=== PATIENT | male | born 1990 | race Two or more races ===

== ENCOUNTER 2024-01-25 19:24 | Emergency (ER) | payer MEDICAID, OTHER ==
[~2024-01-25] VITALS: Ht 188 cm; Wt 145.2 kg
[2024-01-25 19:42] VITALS: BP 145/72; PULSE 107
[2024-01-25 19:55] VITALS: RESP 18; O2SAT 93
[2024-01-25] MEDS: ALBUTEROL SULF 2.5 MG/0.5ML(0.5%) NEB SOLN NEB ONE (19:57)
[2024-01-25] MEDS: IPRATROPIUM BROM 0.5 MG/2.5ML INH SOL NEB ONE (19:58)
[2024-01-25 20:23] LABS: Basophils # (auto) 0.1 10 ^3/uL (0-0.2); Basophils % (auto) 0.9 % (0.0-2.0); Eosinophils # (auto) 0.5 10 ^3/uL (0-0.8); Eosinophils % (auto) 5.2 % (0.0-7.0); Hematocrit 43.1 % (41.0-53.0); Hemoglobin 14.8 g/dL (13.5-17.5); Lymphocytes # (auto) 2.4 10 ^3/uL (0.4-5.4); Lymphocytes % (auto) 27.1 % (10.0-50.0); Mean Corpuscular Hemoglobin 30.4 pg (28.0-32.0); Mean Corpuscular Hgb Conc. 34.4 g/dL (32.0-36.0); Mean Corpuscular Volume 88.3 fL (80.0-100.0); Monocytes # (auto) 0.8 10 ^3/uL (0-1.3); Monocytes % (auto) 8.6 % (0.0-12.0); Neutrophils # (auto) 5.1 10 ^3/uL (1.6-8.6); Neutrophils % (auto) 58.2 % (37.0-80.0); Nucleated Red Blood Cells % 0.2 %; Platelet Count (auto) 220 10^3/uL (140-450); Red Blood Cells 4.88 10^6/uL (4.5-5.90); Red Cell Distribution Width 13.8 % (11.8-14.3); White Blood Cell 8.7 10^3/uL (4.4-10.8)
[2024-01-25 20:43] LABS: Alanine Aminotransferase 55 U/L (7-40); Albumin 4.4 g/dL (3.2-4.8); Alkaline Phosphatase 110 U/L (46-116); Anion Gap 6 (5-15); Aspartate Aminotransferase 39 U/L (13-40); Bilirubin, Total 0.5 mg/dL (0.2-1.0); Blood Urea Nitrogen 15 mg/dL (9-23); Calcium 9.4 mg/dL (8.7-10.4); Carbon Dioxide 24 mmol/L (20-30); Chloride 111 mmol/L (98-107); Glucose 108 mg/dL (74-106); Potassium 3.8 mmol/L (3.5-5.1); Sodium 141 mmol/L (136-145); Total Protein 7.4 g/dL (5.7-8.2)
[2024-01-25 20:47] LABS: Urine Bacteria None Seen /hpf (None Seen)
[2024-01-25] MEDS: cefTRIAXone 1GM/50ML D5W 50 ML IV ONE (20:54)
[2024-01-25] MEDS: AZITHROMYCIN 500MG/ 250ML 250 ML IV ONE (20:54)
[2024-01-25 21:34] LABS: Urine Blood Negative /uL (Negative); Urine Clarity Clear (Clear); Urine Color Yellow (Yellow); Urine Mucus FEW (None Seen); Urine Protein, UAD 1+ (Negative); Urine Specific Gravity 1.037 (1.001-1.035); Urine Urobilinogen Normal (Negative); Urine WBC 1 /hpf (0 - 3); Urine pH 5.5 (5.0-9.0)
[2024-01-25 21:37] LABS: COVID19 ANTIGEN SOFIA FIA NEGATIVE (NEGATIVE); Rapid Influenza A Negative (Negative); Rapid Influenza B Negative (Negative)
[2024-01-26] MEDS ORDERED: AUG875T PO (04:24)
[2024-01-26] MEDS ORDERED: ALBU108A5 IN (04:24)
[2024-01-26] MEDS ORDERED: AZITTAB PO (04:24)
== END 2024-01-26 05:04 | disposition home or self-care (01) ==
LOC: EDBD 19:24 → ER 19:24
DX: J40 Bronchitis, not specified as acute or chronic (principal); R07.81 Pleurodynia; Z20.822 Contact with and (suspected) exposure to COVID-19
CPT/HCPCS: 36415; 71045; 80053; 81001; 83605; 83880; 84484; 85025; 87040; 87426; 87804; 93005; 94640; 96365; 96366; 96368; 99285; J0456; J0696